=== PATIENT | male | born 1990 | race Caucasian/White ===

== ENCOUNTER 2023-01-26 14:21 | Emergency (ER) | payer BC ==
[~2023-01-26] VITALS: Ht 188 cm; Wt 104.5 kg
[2023-01-26 14:31] VITALS: BP 147/84
[2023-01-26] MEDS ORDERED: SULF1TAB45 PO (15:12)
== END 2023-01-26 15:23 | disposition home or self-care (01) ==
LOC: ER 14:21
DX: L02.413 Cutaneous abscess of right upper limb (principal)
CPT/HCPCS: 10060; 99283; A6449

== ENCOUNTER 2023-01-27 00:04 | Emergency (ER) | payer BC ==
[~2023-01-27] VITALS: Ht 188 cm; Wt 104.5 kg
[~2023-01-27 00:04] MED LIST: SULF1TAB45 PO
[2023-01-27] MEDS ORDERED: TETanus/Pertussis (Acell)/Diphther VAC/PF (Tdap-Adult) 0.5ml syringe IMVAC ONE (00:55)
[2023-01-27 01:53] VITALS: BP 131/80
== END 2023-01-27 01:57 | disposition home or self-care (01) ==
LOC: ER 00:07
DX: I80.9 Phlebitis and thrombophlebitis of unspecified site (principal); Z79.899 Other long term (current) drug therapy
CPT/HCPCS: 90471; 90715; 99283

== ENCOUNTER 2023-03-21 11:54 | Emergency (ER) | payer BC ==
[~2023-03-21] VITALS: Ht 188 cm; Wt 97.8 kg
[2023-03-21 12:20] VITALS: BP 123/77; PULSE 69; RESP 16; TEMP 98.6; O2SAT 100
[2023-03-21] MEDS ORDERED: bacitracin 15gm ointment TP ONE (14:15)
[2023-03-21] MEDS ORDERED: LIDOcaine 1% 30ml preserv. free vial IJ ONE (14:15)
[2023-03-21] MEDS ORDERED: SULF1TAB45 PO (14:50)
[2023-03-21] MEDS ORDERED: CEPH-585 PO (14:50)
[2023-03-21] MEDS ORDERED: cephalexin 250mg capsule PO ONE (14:55)
[2023-03-21] MEDS ORDERED: sulfamethoxazole/trimethoprim DS (800/160mg) tablet PO ONE (14:55)
[2023-03-21] MEDS ORDERED: cephalexin 500mg capsule PO ONE (14:55)
== END 2023-03-21 15:15 | disposition home or self-care (01) ==
LOC: ER 11:55
DX: L03.011 Cellulitis of right finger (principal); L02.511 Cutaneous abscess of right hand
CPT/HCPCS: 26010; 99284